=== PATIENT | male | born 1980 | race Caucasian/White ===

== ENCOUNTER 2019-10-08 16:41 | Observation (INO) | payer SELFPAY ==
[2019-10-08] MEDS ORDERED: Sodium Chloride 0.9% 10 ML Syringe FLUSH PRN (17:09)
[2019-10-08] MEDS ORDERED: Ondansetron 4 MG/2 ML SDV IVPUSH ONE (17:09)
[2019-10-08] MEDS ORDERED: Sodium Chloride 0.9% 1,000 ML IV ONE ×2 (17:09→22:59)
[2019-10-08] MEDS ORDERED: Sodium Chloride 0.9% 2.5 ML Syringe FLUSH PRN (17:09)
[2019-10-08] MEDS ORDERED: Morphine 4 MG/ML Syringe ONE (17:36)
[2019-10-08] MEDS ORDERED: Ketorolac 15 MG/ML SDV ONE (17:36)
[2019-10-08] MEDS ORDERED: Morphine 4 MG/ML Syringe IVPUSH ONE (17:38)
[2019-10-08] MEDS ORDERED: Ketorolac 15 MG/ML SDV IVPUSH ONE (17:39)
[2019-10-08 18:05] LABS: CARBON DIOXIDE,CO2 29.8 mmol/L (21.0-32.0); POTASSIUM,K 4.2 mmol/L (3.5-5.1)
--- NOTE | 2019-10-08 18:29 | EDM.PDOC ---
ED HPI GENERAL MEDICAL PROBLEM - General Chief Complaint: Abdominal Pain Stated Complaint: LWR ABDOMINAL PAIN Time Seen by Provider: 10/08/19 17:19 - History of Present Illness INITIAL COMMENTS - FREE TEXT/NARRATIVE: History of present illness: 39-year-old male presenting with right lower quadrant abdominal pain that intermittently radiates to the right flank. Nauseous and vomiting. Patient did report he is feeling chills and sweats though no measured fevers. No diarrhea. No recent sick contacts. No prior similar symptoms. Does not noticed any blood or change in urine color or smell. Review of systems: As per history of present illness and below otherwise all systems reviewed and negative. Past medical history: As per history of present illness and as reviewed below otherwise noncontributory. Surgical history: As per history of present illness and as reviewed below otherwise noncontributory. Social history: No reported history of drug or alcohol abuse. No tobacco. Family history: As per history of present illness and as reviewed below otherwise noncontributory. Physical exam: GEN: no acute distress, well appearing HEENT: Atraumatic, normocephalic, mucous membranes moist, Neck: supple, nontender, trachea midline. Lungs: No respiratory distress. Heart: RRR Abdomen: Soft, nondistended, right lower quadrant tenderness to palpation. Minimal right upper quadrant tenderness. Tena's negative. No epigastric or left-sided abdominal tenderness. Back: Mild CVA tenderness Extremities: Atraumatic. Neurovascularly intact. Neuro: Awake, alert, oriented. Neuro Exam nonfocal. Skin: warm, dry, no lesions Diagnostics: Labs and CT scan Therapeutics: Toradol, Zofran, Rocephin MDM: Appendicitis versus stone versus UTI. Less likely cholecystitis given minimal tenderness in right upper quadrant. Impression: [] Plan: [] Definitive disposition and diagnosis as appropriate pending reevaluation and review of above. Abdominal Pain Score (Numeric/FACES): 6 - Related Data Allergies Allergy/AdvReac Type Severity Reaction Status Date / Time Penicillins Allergy Cannot Verified 10/09/19 02:02 Remember Home Meds: Home Meds . [No Known Home Meds] 10/08/19 [History] Past Medical History - Past Health History Medical/Surgical History: Denies Medical/Surgical History - Infectious Disease History Infectious Disease History: Reports: None Social & Family History - Family History Family Medical History: Noncontributory - Tobacco Use Smoking Status *Q: Never Smoker - Caffeine Use Caffeine Use: Reports: None - Recreational Drug Use Recreational Drug Use: No ED ROS GENERAL - Review of Systems Review Of Systems: See Below (See HPI) ED EXAM, GI/ABD - Physical Exam Exam: See Below (See HPI) Course - Vital Signs Text/Narrative:: Lower quadrant abdominal pain, nausea and vomiting. No measured fevers at home but did feel chills and sweats. White blood cell count elevated here. UA appears bloody, CT scan shows 5 mm stone at the proximal ureter with decreased perfusion to the kidney and hydronephrosis. Lipase also elevated, however pain not located in this area, question lab error? Does not drink alcohol. Pain not located in the epigastrium. Will recheck lipase level, lab called for redraw. Will admit the patient. Case discussed with urologist, who recommended to monitor the patient and creatinine. Also discussed with hospitalist who agrees to admit the patient. Last Recorded V/S: Last Vital Signs Temp 98.0 F 10/09/19 03:32 Pulse 70 10/09/19 03:32 Resp 17 10/09/19 03:32 BP 122/71 10/09/19 03:32 Pulse Ox 95 10/09/19 03:32 - Orders/Labs/Meds Orders: Active Orders 24 hr Category Date Time Status Patient Status [ADT] Routine ADT 10/08/19 19:52 Active Sodium Chloride 0.9% [Saline Flush] Med 10/08/19 17:09 Active 10 ml FLUSH ASDIRECTED PRN Sodium Chloride 0.9% [Saline Flush] Med 10/08/19 17:09 Active 2.5 ml FLUSH ASDIRECTED PRN Saline Lock Insert [OM.PC] Stat Oth 10/08/19 17:09 Ordered Medication Orders Sodium Chloride (Normal Saline) 1,000 mls @ 200 mls/hr IV ASDIRECTED LUZ MARIA Last Admin: 10/09/19 07:41 Dose: 200 mls/hr Documented by: Infusion: 10/09/19 07:41 Dose: 200 mls/hr Documented by: Admin: 10/09/19 03:11 Dose: 200 mls/hr Documented by: Infusion: 07/19/20 02:08 Dose: 200 mls/hr Documented by: Admin: 10/08/19 21:08 Dose: 200 mls/hr Documented by: RAFAEL Morphine Sulfate (Morphine) 2 mg IVPUSH Q3H PRN PRN Reason: Pain Sodium Chloride (Saline Flush) 10 ml FLUSH ASDIRECTED PRN PRN Reason: Keep Vein Open Sodium Chloride (Saline Flush) 2.5 ml FLUSH ASDIRECTED PRN PRN Reason: Keep Vein Open Labs: Laboratory Tests 10/08/19 10/08/19 10/08/19 Range/Units 17:20 17:20 17:21 WBC 12.46 H (4.0-11.0) K/uL RBC 5.54 (4.50-5.90) M/uL Hgb 15.8 (13.0-17.0) g/dL Hct 48.3 (38.0-50.0) % MCV 87.2 (80.0-98.0) fL MCH 28.5 (27.0-32.0) pg MCHC 32.7 (31.0-37.0) g/dL RDW Std Deviation 41.7 (28.0-62.0) fl RDW Coeff of [place] 13 (11.0-15.0) % Plt Count 260 (150-400) K/uL MPV 11.50 (7.40-12.00) fL Neut % (Auto) 78.3 (48.0-80.0) % Lymph % (Auto) 15.4 L (16.0-40.0) % [place] % (Auto) 5.7 (0.0-15.0) % Eos % (Auto) 0.3 (0.0-7.0) % Baso % (Auto) 0.3 (0.0-1.5) % Neut # (Auto) 9.8 H (1.4-5.7) K/uL Lymph # (Auto) 1.9 (0.6-2.4) K/uL [place] # (Auto) 0.7 (0.0-0.8) K/uL Eos # (Auto) 0.0 (0.0-0.7) K/uL Baso # (Auto) 0.0 (0.0-0.1) K/uL Nucleated RBC % 0.0 /100WBC Nucleated RBCs # 0 K/uL Sodium 141 (136-148) mmol/L Potassium 4.2 (3.5-5.1) mmol/L Chloride 102 (98-107) mmol/L Carbon Dioxide 29.8 (21.0-32.0) mmol/L BUN 16 (7.0-18.0) mg/dL Creatinine 1.4 H (0.8-1.3) mg/dL Est Cr Clr Drug Dosing 76.21 mL/min Estimated GFR (MDRD) 55.8 ml/min Glucose 120 H (74-106) mg/dL Calcium 9.7 (8.5-10.1) mg/dL Total Bilirubin 0.4 (0.2-1.0) mg/dL AST 30 (15-37) IU/L ALT 47 (14-63) IU/L Alkaline Phosphatase 73 (46-116) U/L Total Protein 8.1 (6.4-8.2) g/dL Albumin 4.1 (3.4-5.0) g/dL Globulin 4.0 (2.6-4.0) g/dL Albumin/Globulin Ratio 1.0 (0.9-1.6) Lipase 4237 H (73-393) U/L Urine Color YELLOW Urine Appearance SLT CLOUDY Urine pH 6.5 (5.0-8.0) Ur Specific [place] 1.025 (1.001-1.035) Urine Protein TRACE H (NEGATIVE) mg/dL Urine Glucose (UA) NEGATIVE (NEGATIVE) mg/dL Urine Ketones NEGATIVE (NEGATIVE) mg/dL Urine Occult Blood LARGE H (NEGATIVE) Urine Nitrite NEGATIVE (NEGATIVE) Urine Bilirubin NEGATIVE (NEGATIVE) Urine Urobilinogen 0.2 (<2.0) EU/dL Ur Leukocyte Esterase NEGATIVE (NEGATIVE) Urine RBC 40-50 (0-2/HPF) Urine WBC 2-4 (0-5/HPF) Ur Epithelial Cells FEW (NONE-FEW) Urine Bacteria FEW (NEGATIVE) 10/08/19 Range/Units 20:02 WBC (4.0-11.0) K/uL RBC (4.50-5.90) M/uL Hgb (13.0-17.0) g/dL Hct (38.0-50.0) % MCV (80.0-98.0) fL MCH (27.0-32.0) pg MCHC (31.0-37.0) g/dL RDW Std Deviation (28.0-62.0) fl RDW Coeff of [place] (11.0-15.0) % Plt Count (150-400) K/uL MPV (7.40-12.00) fL Neut % (Auto) (48.0-80.0) % Lymph % (Auto) (16.0-40.0) % [place] % (Auto) (0.0-15.0) % Eos % (Auto) (0.0-7.0) % Baso % (Auto) (0.0-1.5) % Neut # (Auto) (1.4-5.7) K/uL Lymph # (Auto) (0.6-2.4) K/uL [place] # (Auto) (0.0-0.8) K/uL Eos # (Auto) (0.0-0.7) K/uL Baso # (Auto) (0.0-0.1) K/uL Nucleated RBC % /100WBC Nucleated RBCs # K/uL Sodium (136-148) mmol/L Potassium (3.5-5.1) mmol/L Chloride (98-107) mmol/L Carbon Dioxide (21.0-32.0) mmol/L BUN (7.0-18.0) mg/dL Creatinine (0.8-1.3) mg/dL Est Cr Clr Drug Dosing mL/min Estimated GFR (MDRD) ml/min Glucose (74-106) mg/dL Calcium (8.5-10.1) mg/dL Total Bilirubin (0.2-1.0) mg/dL AST (15-37) IU/L ALT (14-63) IU/L Alkaline Phosphatase (46-116) U/L Total Protein (6.4-8.2) g/dL Albumin (3.4-5.0) g/dL Globulin (2.6-4.0) g/dL Albumin/Globulin Ratio (0.9-1.6) Lipase 2116 H (73-393) U/L Urine Color Urine Appearance Urine pH (5.0-8.0) Ur Specific [place] (1.001-1.035) Urine Protein (NEGATIVE) mg/dL Urine Glucose (UA) (NEGATIVE) mg/dL Urine Ketones (NEGATIVE) mg/dL Urine Occult Blood (NEGATIVE) Urine Nitrite (NEGATIVE) Urine Bilirubin (NEGATIVE) Urine Urobilinogen (<2.0) EU/dL Ur Leukocyte Esterase (NEGATIVE) Urine RBC (0-2/HPF) Urine WBC (0-5/HPF) Ur Epithelial Cells (NONE-FEW) Urine Bacteria (NEGATIVE) Meds: Medications Generic Name Dose Route Start Last Admin Trade Name Caroline PRN Reason Stop Dose Admin Sodium Chloride 1,000 mls @ 200 mls/hr 10/08/19 20:45 10/09/19 07:41 Normal Saline IV 200 mls/hr ASDIRECTED LUZ MARIA Administration Morphine Sulfate 2 mg 10/08/19 20:40 Morphine IVPUSH Q3H PRN Pain Sodium Chloride 10 ml 10/08/19 17:09 Saline Flush FLUSH ASDIRECTED PRN Keep Vein Open Sodium Chloride 2.5 ml 10/08/19 17:09 Saline Flush FLUSH ASDIRECTED PRN Keep Vein Open Discontinued Medications Generic Name Dose Route Start Last Admin Trade Name Caroline PRN Reason Stop Dose Admin Sodium Chloride 1,000 mls @ 999 mls/hr 10/08/19 17:09 10/08/19 17:22 Normal Saline IV 10/08/19 18:09 999 mls/hr .Bolus ONE Administration Ceftriaxone Sodium 1 gm/ 50 mls @ 100 mls/hr 10/08/19 19:35 10/08/19 19:45 Sodium Chloride IV 10/08/19 20:04 100 mls/hr ONETIME ONE Administration Sodium Chloride 1,000 mls @ 999 mls/hr 10/08/19 22:59 10/08/19 23:32 Normal Saline IV 10/08/19 23:59 999 mls/hr .Bolus ONE Administration Iopamidol 100 ml 10/08/19 19:09 10/08/19 19:09 Isovue-370 (76%) IVPUSH 10/08/19 19:10 100 ml ONETIME ONE Administration Ketorolac Tromethamine Confirm 10/08/19 17:36 10/08/19 17:57 Toradol Administered 10/08/19 17:37 Not Given Dose 15 mg .ROUTE .STK-MED ONE Ketorolac Tromethamine 15 mg 10/08/19 17:39 10/08/19 17:42 Toradol IVPUSH 10/08/19 17:40 15 mg ONETIME ONE Administration Morphine Sulfate Confirm 10/08/19 17:36 10/08/19 17:57 Morphine Administered 10/08/19 17:37 Not Given Dose 4 mg .ROUTE .STK-MED ONE Morphine Sulfate 4 mg 10/08/19 17:38 10/08/19 17:40 Morphine IVPUSH 10/08/19 17:39 4 mg ONETIME ONE Administration Ondansetron HCl 4 mg 10/08/19 17:09 10/08/19 17:22 Zofran IVPUSH 10/08/19 17:10 4 mg ONETIME ONE Administration - Re-Assessments/Exams Free Text/Narrative Re-Assessment/Exam: 10/08/19 19:11 discussed with patient, he is feeling somewhat better. Discussed CT scan findings and concern for large proximal stone causing obstruction and need to discuss with urology, and for admission. 10/08/19 19:36 Discussed with urology, agrees with plan of care for the patient, requests hospitalist admit the patient based on elevated lipase as well and if patient tate s any worsening creatinine or obstructing stone issues, he will come in and place stent. 10/08/19 19:[address] Norman who accepts the case. Request to place the patient to observation. Departure - Departure Time of Disposition: 19:45 Disposition: Refer to Observation Clinical Impression: Urinary tract obstruction by kidney stone, Pancreatitis - Discharge Information Sepsis Event Note (ED) - Evaluation Sepsis Screening Result: No Definite Risk - My Orders Last 24 Hours: My Active Orders 10/08/19 17:09 Sodium Chloride 0.9% [Saline Flush] 10 ml FLUSH ASDIRECTED PRN Sodium Chloride 0.9% [Saline Flush] 2.5 ml FLUSH ASDIRECTED PRN Saline Lock Insert [OM.PC] Stat 10/08/19 19:52 Patient Status [ADT] Routine - Assessment/Plan Last 24 Hours: My Active Orders 10/08/19 17:09 Sodium Chloride 0.9% [Saline Flush] 10 ml FLUSH ASDIRECTED PRN Sodium Chloride 0.9% [Saline Flush] 2.5 ml FLUSH ASDIRECTED PRN Saline Lock Insert [OM.PC] Stat 10/08/19 19:52 Patient Status [ADT] Routine
--- NOTE | 2019-10-08 19:04 | CT ---
CT abdomen and pelvis Technique: Multiple axial sections were obtained from above the dome of the diaphragm inferiorly through the pubic symphysis. Intravenous contrast was utilized. No oral contrast has been given. Findings: Decreased perfusion within the right kidney is seen as compared to the left kidney. This finding is caused by an obstructing stone within the proximal right ureter measuring between 5.0 and 5.5 mm. This finding causes proximal hydronephrosis. Several nonobstructing stones are seen within the left kidney. Visualized lung bases show nothing acute. Liver shows a small low density lesionre within the right lobe measuring 1.1 cm in size which is compatible with a cyst. No additional abnormality is appreciated within the liver. Spleen appears within normal limits. Adrenal glands show no nodule. Pancreas shows no discrete abnormality. Aorta shows no aneurysm. No retroperitoneal adenopathy or mesenteric abnormalities are seen. No pelvic mass or adenopathy is identified. Appendix is seen which is normal in size. Bone window settings were reviewed which shows no acute osseous finding. Impression: 1. Decreased perfusion within the right kidney as compared to the left side which is caused by a ureteral stone within the proximal right ureter measuring between 5.0 and 5.5 mm. This stone causes proximal hydronephrosis. 2. Nonobstructing calculi within the left kidney. 3. No other acute finding is seen on CT study of the abdomen and pelvis. Diagnostic code #3 This report was dictated in MDT
[2019-10-08] MEDS ORDERED: Iopamidol 755 Mg/ML 100 ML Bottle IVPUSH ONE (19:09)
[2019-10-08] MEDS ORDERED: cefTRIAXone 1 GM in Sodium Chloride 0.9% 50 ML IV ONE (19:35)
[2019-10-08] MEDS ORDERED: Morphine 2 MG/ML SYRINGE IVPUSH PRN (20:40)
[2019-10-08] MEDS: Sodium Chloride 0.9% 1,000 ML IV SCH (21:08)
--- NOTE | 2019-10-08 23:01 | PCM.HP.2 ---
H&P History of Present Illness - General Date of Service: 10/08/19 Admit Problem/Dx: Admission Diagnosis/Problem Admission Diagnosis/Problem Kidney stone - History of Present Illness Initial Comments - Free Text/Narative: 39 yo male who presented with one day history of right lower quadrant pain that radiates to the flank. He denies any fever, chills, diarrhea, or dysuria. CT scan showed 5 mm right ureter stone. Patient was also noted to have an elevated lipase. Patient denies any alcohol use. Abdominal Pain Score (Numeric/FACES): 5 - Related Data Allergies/Adverse Reactions: Allergies Allergy/AdvReac Type Severity Reaction Status Date / Time Penicillins Allergy Cannot Verified 10/08/19 16:55 Remember Home Medications: Home Meds . [No Known Home Meds] 10/08/19 [History] Past Medical History - Past Health History Medical/Surgical History: Denies Medical/Surgical History - Infectious Disease History Infectious Disease History: Reports: None Social & Family History - Family History Family Medical History: Noncontributory - Tobacco Use Smoking Status *Q: Never Smoker - Caffeine Use Caffeine Use: Reports: None - Recreational Drug Use Recreational Drug Use: No H&P Review of Systems - Review of Systems: Review Of Systems: Comprehensive ROS is negative, except as noted in HPI. Exam - Exam Exam: See Below - Vital Signs Vital Signs: Last Vital Signs Temp 37.1 C 10/08/19 21:00 Pulse 77 10/08/19 21:00 Resp 17 10/08/19 21:00 BP 132/78 10/08/19 21:00 Pulse Ox 95 10/08/19 21:00 Weight: 100.924 kg - Exam General: Alert, Oriented HEENT: Mucosa Moist & [place] Neck: Supple Lungs: Clear to Auscultation, Normal Respiratory Effort Cardiovascular: Regular Rate, Regular Rhythm GI/Abdominal Exam: Normal Bowel Sounds, Soft, Non-Tender Extremities: Non-Tender, No Pedal Edema Skin: Warm, Dry, Intact Neurological: No: Focal Deficit - Patient Data Lab Results Last 24 hrs: Laboratory Results - last 24 hr 10/08/19 10/08/19 10/08/19 Range/Units 17:20 17:20 17:21 WBC 12.46 H (4.0-11.0) K/uL RBC 5.54 (4.50-5.90) M/uL Hgb 15.8 (13.0-17.0) g/dL Hct 48.3 (38.0-50.0) % MCV 87.2 (80.0-98.0) fL MCH 28.5 (27.0-32.0) pg MCHC 32.7 (31.0-37.0) g/dL RDW Std Deviation 41.7 (28.0-62.0) fl RDW Coeff of Eugenia 13 (11.0-15.0) % Plt Count 260 (150-400) K/uL MPV 11.50 (7.40-12.00) fL Neut % (Auto) 78.3 (48.0-80.0) % Lymph % (Auto) 15.4 L (16.0-40.0) % [place] % (Auto) 5.7 (0.0-15.0) % Eos % (Auto) 0.3 (0.0-7.0) % Baso % (Auto) 0.3 (0.0-1.5) % Neut # (Auto) 9.8 H (1.4-5.7) K/uL Lymph # (Auto) 1.9 (0.6-2.4) K/uL [place] # (Auto) 0.7 (0.0-0.8) K/uL Eos # (Auto) 0.0 (0.0-0.7) K/uL Baso # (Auto) 0.0 (0.0-0.1) K/uL Nucleated RBC % 0.0 /100WBC Nucleated RBCs # 0 K/uL Sodium 141 (136-148) mmol/L Potassium 4.2 (3.5-5.1) mmol/L Chloride 102 (98-107) mmol/L Carbon Dioxide 29.8 (21.0-32.0) mmol/L BUN 16 (7.0-18.0) mg/dL Creatinine 1.4 H (0.8-1.3) mg/dL Est Cr Clr Drug Dosing 76.21 mL/min Estimated GFR (MDRD) 55.8 ml/min Glucose 120 H (74-106) mg/dL Calcium 9.7 (8.5-10.1) mg/dL Total Bilirubin 0.4 (0.2-1.0) mg/dL AST 30 (15-37) IU/L ALT 47 (14-63) IU/L Alkaline Phosphatase 73 (46-116) U/L Total Protein 8.1 (6.4-8.2) g/dL Albumin 4.1 (3.4-5.0) g/dL Globulin 4.0 (2.6-4.0) g/dL Albumin/Globulin Ratio 1.0 (0.9-1.6) Lipase 4237 H (73-393) U/L Urine Color YELLOW Urine Appearance SLT CLOUDY Urine pH 6.5 (5.0-8.0) Ur Specific [place] 1.025 (1.001-1.035) Urine Protein TRACE H (NEGATIVE) mg/dL Urine Glucose (UA) NEGATIVE (NEGATIVE) mg/dL Urine Ketones NEGATIVE (NEGATIVE) mg/dL Urine Occult Blood LARGE H (NEGATIVE) Urine Nitrite NEGATIVE (NEGATIVE) Urine Bilirubin NEGATIVE (NEGATIVE) Urine Urobilinogen 0.2 (<2.0) EU/dL Ur Leukocyte Esterase NEGATIVE (NEGATIVE) Urine RBC 40-50 (0-2/HPF) Urine WBC 2-4 (0-5/HPF) Ur Epithelial Cells FEW (NONE-FEW) Urine Bacteria FEW (NEGATIVE) COVID-19 (SHOSHANA) (NEGATIVE) 10/08/19 10/08/19 Range/Units 20:02 20:05 WBC (4.0-11.0) K/uL RBC (4.50-5.90) M/uL Hgb (13.0-17.0) g/dL Hct (38.0-50.0) % MCV (80.0-98.0) fL MCH (27.0-32.0) pg MCHC (31.0-37.0) g/dL RDW Std Deviation (28.0-62.0) fl RDW Coeff of [place] (11.0-15.0) % Plt Count (150-400) K/uL MPV (7.40-12.00) fL Neut % (Auto) (48.0-80.0) % Lymph % (Auto) (16.0-40.0) % [place] % (Auto) (0.0-15.0) % Eos % (Auto) (0.0-7.0) % Baso % (Auto) (0.0-1.5) % Neut # (Auto) (1.4-5.7) K/uL Lymph # (Auto) (0.6-2.4) K/uL [place] # (Auto) (0.0-0.8) K/uL Eos # (Auto) (0.0-0.7) K/uL Baso # (Auto) (0.0-0.1) K/uL Nucleated RBC % /100WBC Nucleated RBCs # K/uL Sodium (136-148) mmol/L Potassium (3.5-5.1) mmol/L Chloride (98-107) mmol/L Carbon Dioxide (21.0-32.0) mmol/L BUN (7.0-18.0) mg/dL Creatinine (0.8-1.3) mg/dL Est Cr Clr Drug Dosing mL/min Estimated GFR (MDRD) ml/min Glucose (74-106) mg/dL Calcium (8.5-10.1) mg/dL Total Bilirubin (0.2-1.0) mg/dL AST (15-37) IU/L ALT (14-63) IU/L Alkaline Phosphatase (46-116) U/L Total Protein (6.4-8.2) g/dL Albumin (3.4-5.0) g/dL Globulin (2.6-4.0) g/dL Albumin/Globulin Ratio (0.9-1.6) Lipase 2116 H (73-393) U/L Urine Color Urine Appearance Urine pH (5.0-8.0) Ur Specific [place] (1.001-1.035) Urine Protein (NEGATIVE) mg/dL Urine Glucose (UA) (NEGATIVE) mg/dL Urine Ketones (NEGATIVE) mg/dL Urine Occult Blood (NEGATIVE) Urine Nitrite (NEGATIVE) Urine Bilirubin (NEGATIVE) Urine Urobilinogen (<2.0) EU/dL Ur Leukocyte Esterase (NEGATIVE) Urine RBC (0-2/HPF) Urine WBC (0-5/HPF) Ur Epithelial Cells (NONE-FEW) Urine Bacteria (NEGATIVE) COVID-19 (SHOSHANA) NEGATIVE (NEGATIVE) Result Diagrams: 10/08/19 17:20 10/08/19 17:20 Sepsis Event Note - Evaluation Sepsis Screening Result: No Definite Risk - Focused Exam Vital Signs: Vital Signs Temp Pulse Resp BP Pulse Ox 10/08/19 21:00 37.1 C 77 17 132/78 95 10/08/19 19:51 82 17 120/75 94 L 10/08/19 18:53 64 17 139/82 98 10/08/19 16:56 36.7 C 60 18 149/91 H 98 Date Exam was Performed: 10/08/19 Time Exam was Performed: 23:53 Problem List Initiated/Reviewed/Updated: Yes Orders Last 24hrs: Active Orders 24 hr Category Date Time Status Patient Status [ADT] Routine ADT 10/08/19 19:52 Active Nothing per Oral Now Diet [DIET] Diet 10/09/19 Breakfast Active Morphine Med 10/08/19 20:40 Active 2 mg IVPUSH Q3H PRN Sodium Chloride 0.9% [Normal Saline] 1,000 ml Med 10/08/19 22:59 Ordered IV .Bolus Sodium Chloride 0.9% [Normal Saline] 1,000 ml Med 10/08/19 20:45 Active IV ASDIRECTED Sodium Chloride 0.9% [Saline Flush] Med 10/08/19 17:09 Active 10 ml FLUSH ASDIRECTED PRN Sodium Chloride 0.9% [Saline Flush] Med 10/08/19 17:09 Active 2.5 ml FLUSH ASDIRECTED PRN Saline Lock Insert [OM.PC] Stat Oth 10/08/19 17:09 Ordered Medication Orders Sodium Chloride (Normal Saline) 1,000 mls @ 200 mls/hr IV ASDIRECTED LUZ MARIA Last Admin: 10/08/19 21:08 Dose: 200 mls/hr Documented by: RAFAEL Sodium Chloride (Normal Saline) 1,000 mls @ 999 mls/hr IV .Bolus ONE Stop: 10/08/19 23:59 Morphine Sulfate (Morphine) 2 mg IVPUSH Q3H PRN PRN Reason: Pain Sodium Chloride (Saline Flush) 10 ml FLUSH ASDIRECTED PRN PRN Reason: Keep Vein Open Sodium Chloride (Saline Flush) 2.5 ml FLUSH ASDIRECTED PRN PRN Reason: Keep Vein Open Assessment/Plan Comment:: 39 yo male admitted for right renal stone and pancreatitis. We will hydrate with IV fluids, keep NPO. Morphine prn pain.
[2019-10-09] MEDS: Sodium Chloride 0.9% 1,000 ML IV SCH ×2 (03:11→07:41)
[2019-10-09 06:06] LABS: BLOOD UREA NITROGEN,BUN 16 mg/dL (7.0-18.0); CARBON DIOXIDE,CO2 27.9 mmol/L (21.0-32.0); CHLORIDE,CL 109 mmol/L (98-107); GLUCOSE RANDOM 107 mg/dL (74-106); POTASSIUM,K 4.3 mmol/L (3.5-5.1); SODIUM,NA 144 mmol/L (136-148)
--- NOTE | 2019-10-09 08:49 | PCM.DCSUM1 ---
Discharge Summary - Discharge Data Discharge Date: 10/09/19 Discharge Disposition: Home, Self-Care 01 Condition: Fair - Referral to Home Health Primary Care Physician: JUAQUIN Stack - Patient Summary/Data Hospital Course: 39 yo male who presented with one day history of right lower quadrant pain that radiates to the flank. CT scan showed 5 mm right ureter stone. Patient was also noted to have an elevated lipase of 4200. Patient denied any alcohol use. His abdominal pain resolved after one dose of morphine and did not return. He was treated with IV fluids and monitored overnight. Today the patient is requesting discharge home. He is to follow up with Dr. Elkins tomorrow in clinic. Dr. Elkins was consulted on admission by ED provider. - Patient Instructions Diet: Usual Diet as Tolerated - Discharge Plan Home Medications: Home Meds . [No Known Home Meds] 10/08/19 [History] Forms: ED Department Discharge Referrals: Ольга Briggs PA [Primary Care Provider] - - Discharge Summary/Plan Comment DC Time >30 min.: No - Patient Data Vitals - Most Recent: Last Vital Signs Temp 36.7 C 10/09/19 03:32 Pulse 70 10/09/19 03:32 Resp 17 10/09/19 03:32 BP 122/71 10/09/19 03:32 Pulse Ox 95 10/09/19 03:32 Weight - Most Recent: 100.924 kg I&O - Last 24 hours: Intake & Output 10/08/19 10/09/19 10/09/19 22:59 06:59 14:59 Intake Total 0 Output Total 1200 Balance -1200 Lab Results - Last 24 hrs: Laboratory Results - last 24 hr 10/08/19 10/08/19 10/08/19 Range/Units 17:20 17:20 17:21 WBC 12.46 H (4.0-11.0) K/uL RBC 5.54 (4.50-5.90) M/uL Hgb 15.8 (13.0-17.0) g/dL Hct 48.3 (38.0-50.0) % MCV 87.2 (80.0-98.0) fL MCH 28.5 (27.0-32.0) pg MCHC 32.7 (31.0-37.0) g/dL RDW Std Deviation 41.7 (28.0-62.0) fl RDW Coeff of Eugenia 13 (11.0-15.0) % Plt Count 260 (150-400) K/uL MPV 11.50 (7.40-12.00) fL Neut % (Auto) 78.3 (48.0-80.0) % Lymph % (Auto) 15.4 L (16.0-40.0) % Robertson % (Auto) 5.7 (0.0-15.0) % Eos % (Auto) 0.3 (0.0-7.0) % Baso % (Auto) 0.3 (0.0-1.5) % Neut # (Auto) 9.8 H (1.4-5.7) K/uL Lymph # (Auto) 1.9 (0.6-2.4) K/uL Robertson # (Auto) 0.7 (0.0-0.8) K/uL Eos # (Auto) 0.0 (0.0-0.7) K/uL Baso # (Auto) 0.0 (0.0-0.1) K/uL Nucleated RBC % 0.0 /100WBC Nucleated RBCs # 0 K/uL Sodium 141 (136-148) mmol/L Potassium 4.2 (3.5-5.1) mmol/L Chloride 102 (98-107) mmol/L Carbon Dioxide 29.8 (21.0-32.0) mmol/L BUN 16 (7.0-18.0) mg/dL Creatinine 1.4 H (0.8-1.3) mg/dL Est Cr Clr Drug Dosing 76.21 mL/min Estimated GFR (MDRD) 55.8 ml/min Glucose 120 H (74-106) mg/dL Calcium 9.7 (8.5-10.1) mg/dL Total Bilirubin 0.4 (0.2-1.0) mg/dL AST 30 (15-37) IU/L ALT 47 (14-63) IU/L Alkaline Phosphatase 73 (46-116) U/L Total Protein 8.1 (6.4-8.2) g/dL Albumin 4.1 (3.4-5.0) g/dL Globulin 4.0 (2.6-4.0) g/dL Albumin/Globulin Ratio 1.0 (0.9-1.6) Triglycerides (0-200) mg/dL Cholesterol (50-200) mg/dL LDL Cholesterol, Calc (60-180) mg/dL VLDL Cholesterol (5-55) mg/dL HDL Cholesterol (40-60) mg/dL Cholesterol/HDL Ratio (3.3-6.0) Lipase 4237 H (73-393) U/L Urine Color YELLOW Urine Appearance SLT CLOUDY Urine pH 6.5 (5.0-8.0) Ur Specific Temple 1.025 (1.001-1.035) Urine Protein TRACE H (NEGATIVE) mg/dL Urine Glucose (UA) NEGATIVE (NEGATIVE) mg/dL Urine Ketones NEGATIVE (NEGATIVE) mg/dL Urine Occult Blood LARGE H (NEGATIVE) Urine Nitrite NEGATIVE (NEGATIVE) Urine Bilirubin NEGATIVE (NEGATIVE) Urine Urobilinogen 0.2 (<2.0) EU/dL Ur Leukocyte Esterase NEGATIVE (NEGATIVE) Urine RBC 40-50 (0-2/HPF) Urine WBC 2-4 (0-5/HPF) Ur Epithelial Cells FEW (NONE-FEW) Urine Bacteria FEW (NEGATIVE) COVID-19 (SHOSHANA) (NEGATIVE) 10/08/19 10/08/19 10/09/19 Range/Units 20:02 20:05 05:30 WBC 10.95 (4.0-11.0) K/uL RBC 4.74 (4.50-5.90) M/uL Hgb 13.5 (13.0-17.0) g/dL Hct 42.0 (38.0-50.0) % MCV 88.6 (80.0-98.0) fL MCH 28.5 (27.0-32.0) pg MCHC 32.1 (31.0-37.0) g/dL RDW Std Deviation 43.6 (28.0-62.0) fl RDW Coeff of Eugenia 13 (11.0-15.0) % Plt Count 220 (150-400) K/uL MPV 11.30 (7.40-12.00) fL Neut % (Auto) 65.2 (48.0-80.0) % Lymph % (Auto) 24.8 (16.0-40.0) % Robertson % (Auto) 9.3 (0.0-15.0) % Eos % (Auto) 0.4 (0.0-7.0) % Baso % (Auto) 0.3 (0.0-1.5) % Neut # (Auto) 7.1 H (1.4-5.7) K/uL Lymph # (Auto) 2.7 H (0.6-2.4) K/uL Robertson # (Auto) 1.0 H (0.0-0.8) K/uL Eos # (Auto) 0.0 (0.0-0.7) K/uL Baso # (Auto) 0.0 (0.0-0.1) K/uL Nucleated RBC % 0.0 /100WBC Nucleated RBCs # 0 K/uL Sodium (136-148) mmol/L Potassium (3.5-5.1) mmol/L Chloride (98-107) mmol/L Carbon Dioxide (21.0-32.0) mmol/L BUN (7.0-18.0) mg/dL Creatinine (0.8-1.3) mg/dL Est Cr Clr Drug Dosing mL/min Estimated GFR (MDRD) ml/min Glucose (74-106) mg/dL Calcium (8.5-10.1) mg/dL Total Bilirubin (0.2-1.0) mg/dL AST (15-37) IU/L ALT (14-63) IU/L Alkaline Phosphatase (46-116) U/L Total Protein (6.4-8.2) g/dL Albumin (3.4-5.0) g/dL Globulin (2.6-4.0) g/dL Albumin/Globulin Ratio (0.9-1.6) Triglycerides (0-200) mg/dL Cholesterol (50-200) mg/dL LDL Cholesterol, Calc (60-180) mg/dL VLDL Cholesterol (5-55) mg/dL HDL Cholesterol (40-60) mg/dL Cholesterol/HDL Ratio (3.3-6.0) Lipase 2116 H (73-393) U/L Urine Color Urine Appearance Urine pH (5.0-8.0) Ur Specific Temple (1.001-1.035) Urine Protein (NEGATIVE) mg/dL Urine Glucose (UA) (NEGATIVE) mg/dL Urine Ketones (NEGATIVE) mg/dL Urine Occult Blood (NEGATIVE) Urine Nitrite (NEGATIVE) Urine Bilirubin (NEGATIVE) Urine Urobilinogen (<2.0) EU/dL Ur Leukocyte Esterase (NEGATIVE) Urine RBC (0-2/HPF) Urine WBC (0-5/HPF) Ur Epithelial Cells (NONE-FEW) Urine Bacteria (NEGATIVE) COVID-19 (SHOSHANA) NEGATIVE (NEGATIVE) 10/09/19 Range/Units 05:30 WBC (4.0-11.0) K/uL RBC (4.50-5.90) M/uL Hgb (13.0-17.0) g/dL Hct (38.0-50.0) % MCV (80.0-98.0) fL MCH (27.0-32.0) pg MCHC (31.0-37.0) g/dL RDW Std Deviation (28.0-62.0) fl RDW Coeff of Eugenia (11.0-15.0) % Plt Count (150-400) K/uL MPV (7.40-12.00) fL Neut % (Auto) (48.0-80.0) % Lymph % (Auto) (16.0-40.0) % Robertson % (Auto) (0.0-15.0) % Eos % (Auto) (0.0-7.0) % Baso % (Auto) (0.0-1.5) % Neut # (Auto) (1.4-5.7) K/uL Lymph # (Auto) (0.6-2.4) K/uL Robertson # (Auto) (0.0-0.8) K/uL Eos # (Auto) (0.0-0.7) K/uL Baso # (Auto) (0.0-0.1) K/uL Nucleated RBC % /100WBC Nucleated RBCs # K/uL Sodium 144 (136-148) mmol/L Potassium 4.3 (3.5-5.1) mmol/L Chloride 109 H (98-107) mmol/L Carbon Dioxide 27.9 (21.0-32.0) mmol/L BUN 16 (7.0-18.0) mg/dL Creatinine 1.3 (0.8-1.3) mg/dL Est Cr Clr Drug Dosing 82.08 mL/min Estimated GFR (MDRD) > 60.0 ml/min Glucose 107 H (74-106) mg/dL Calcium 8.0 L (8.5-10.1) mg/dL Total Bilirubin 0.4 (0.2-1.0) mg/dL AST 20 (15-37) IU/L ALT 33 (14-63) IU/L Alkaline Phosphatase 60 (46-116) U/L Total Protein 6.4 (6.4-8.2) g/dL Albumin 3.1 L (3.4-5.0) g/dL Globulin 3.3 (2.6-4.0) g/dL Albumin/Globulin Ratio 0.9 (0.9-1.6) Triglycerides 149 (0-200) mg/dL Cholesterol 122 (50-200) mg/dL LDL Cholesterol, Calc 66 (60-180) mg/dL VLDL Cholesterol 29 (5-55) mg/dL HDL Cholesterol 26 L (40-60) mg/dL Cholesterol/HDL Ratio 4.7 (3.3-6.0) Lipase (73-393) U/L Urine Color Urine Appearance Urine pH (5.0-8.0) Ur Specific Temple (1.001-1.035) Urine Protein (NEGATIVE) mg/dL Urine Glucose (UA) (NEGATIVE) mg/dL Urine Ketones (NEGATIVE) mg/dL Urine Occult Blood (NEGATIVE) Urine Nitrite (NEGATIVE) Urine Bilirubin (NEGATIVE) Urine Urobilinogen (<2.0) EU/dL Ur Leukocyte Esterase (NEGATIVE) Urine RBC (0-2/HPF) Urine WBC (0-5/HPF) Ur Epithelial Cells (NONE-FEW) Urine Bacteria (NEGATIVE) COVID-19 (SHOSHANA) (NEGATIVE) Med Orders - Current: Current Medications Sodium Chloride (Normal Saline) 1,000 mls @ 200 mls/hr IV ASDIRECTED LUZ MARIA Last Admin: 10/09/19 07:41 Dose: 200 mls/hr Documented by: Morphine Sulfate (Morphine) 2 mg IVPUSH Q3H PRN PRN Reason: Pain Sodium Chloride (Saline Flush) 10 ml FLUSH ASDIRECTED PRN PRN Reason: Keep Vein Open Sodium Chloride (Saline Flush) 2.5 ml FLUSH ASDIRECTED PRN PRN Reason: Keep Vein Open Discontinued Medications Sodium Chloride (Normal Saline) 1,000 mls @ 999 mls/hr IV .Bolus ONE Stop: 10/08/19 18:09 Last Admin: 10/08/19 17:22 Dose: 999 mls/hr Documented by: Ceftriaxone Sodium 1 gm/ (Sodium Chloride) 50 mls @ 100 mls/hr IV ONETIME ONE Stop: 10/08/19 20:04 Last Admin: 10/08/19 19:45 Dose: 100 mls/hr Documented by: Sodium Chloride (Normal Saline) 1,000 mls @ 999 mls/hr IV .Bolus ONE Stop: 10/08/19 23:59 Last Admin: 10/08/19 23:32 Dose: 999 mls/hr Documented by: Iopamidol (Isovue-370 (76%)) 100 ml IVPUSH ONETIME ONE Stop: 10/08/19 19:10 Last Admin: 10/08/19 19:09 Dose: 100 ml Documented by: Ketorolac Tromethamine (Toradol) Confirm Administered Dose 15 mg .ROUTE .STK-MED ONE Stop: 10/08/19 17:37 Last Admin: 10/08/19 17:57 Dose: Not Given Documented by: Ketorolac Tromethamine (Toradol) 15 mg IVPUSH ONETIME ONE Stop: 10/08/19 17:40 Last Admin: 10/08/19 17:42 Dose: 15 mg Documented by: Morphine Sulfate (Morphine) Confirm Administered Dose 4 mg .ROUTE .STK-MED ONE Stop: 10/08/19 17:37 Last Admin: 10/08/19 17:57 Dose: Not Given Documented by: Morphine Sulfate (Morphine) 4 mg IVPUSH ONETIME ONE Stop: 10/08/19 17:39 Last Admin: 10/08/19 17:40 Dose: 4 mg Documented by: Ondansetron HCl (Zofran) 4 mg IVPUSH ONETIME ONE Stop: 10/08/19 17:10 Last Admin: 10/08/19 17:22 Dose: 4 mg Documented by:
== END 2019-10-09 11:15 | disposition home or self-care (01) ==
LOC: MW.ED 16:41 → MW.MS 20:05 → INTOOBSV 20:05
PROVIDERS: ADMIT Internal Medicine; ATTEND Internal Medicine
DX: N13.2 Hydronephrosis with renal and ureteral calculous obstruction (principal); K85.90 Acute pancreatitis without necrosis or infection, unspecified; Z20.828 Contact with and (suspected) exposure to other viral communicable diseases; Z88.0 Allergy status to penicillin
CPT/HCPCS: 36415; 74177; 74177-26; 80053; 80061; 81001; 83690; 85025; 96361; 96365; 96375; 99285-25; G0378; J0696; J1885; J2270; J2405; J7030; J7050; Q9967; U0002

== ENCOUNTER 2019-10-13 06:41 | Day surgery (SDC) | payer SELFPAY ==
[~2019-10-13 06:41] MED LIST: Ciprofloxacin in D5W 200 ML ONE; Ciprofloxacin in D5W 400 MG in Premix Bag 1 BAG IV ONE; Lactated Ringers 1,000 ML IV SCH; Sodium Chloride 0.9% 10 ML SDV IV PRN; Sodium Chloride 0.9% 10 ML Syringe FLUSH PRN; Sodium Chloride 0.9% 2.5 ML Syringe FLUSH PRN
--- NOTE | 2019-10-13 07:18 | PCM.PREANE ---
Preanesthetic Assessment - Anesthesia/Transfusion/Family Hx Anesthesia History: Prior Anesthesia Without Reaction Family History of Anesthesia Reaction: No Transfusion History: No Prior Transfusion(s) Intubation History: Unknown - Review of Systems General: No Symptoms Pulmonary: No Symptoms Cardiovascular: No Symptoms Gastrointestinal: No Symptoms Neurological: No Symptoms Other: Reports: None - Physical Assessment Vital Signs: Last Vital Signs Temp 36.6 C 10/13/19 06:55 Pulse 76 10/13/19 06:55 Resp 16 10/13/19 06:55 BP 149/97 H 10/13/19 06:55 Pulse Ox 97 10/13/19 06:55 Height: 6 ft Weight: 99.79 kg ASA Class: 2 Mental Status: Alert & Oriented x3 Airway Class: Mallampati = 1 Dentition: Reports: Normal Dentition (lower retainer) Thyro-Mental Finger Breadths: 3 Mouth Opening Finger Breadths: 3 ROM/Head Extension: Full Lungs: Clear to Auscultation, Normal Respiratory Effort Cardiovascular: Regular Rate, Regular Rhythm - Allergies Allergies/Adverse Reactions: Allergies Allergy/AdvReac Type Severity Reaction Status Date / Time Penicillins Allergy Cannot Verified 10/12/19 14:07 Remember - Blood Blood Available: No - Anesthesia Plan Pre-Op Medication Ordered: None - Acknowledgements Anesthesia Type Planned: General Anesthesia Pt an Appropriate Candidate for the Planned Anesthesia: Yes Alternatives and Risks of Anesthesia Discussed w Pt/Guardian: Yes Pt/Guardian Understands and Agrees with Anesthesia Plan: Yes PreAnesthesia Questionnaire - Past Health History Medical/Surgical History: Denies Medical/Surgical History HEENT History: Reports: Other (See Below) Other HEENT History: wears glasses, has permanent lower dental retainer Cardiovascular History: Reports: None Respiratory History: Reports: None Gastrointestinal History: Reports: None Genitourinary History: Reports: Other (See Below) Other Genitourinary History: presently has kidney stone Musculoskeletal History: Reports: None Neurological History: Reports: None Psychiatric History: Reports: None Endocrine/Metabolic History: Reports: None Hematologic History: Reports: None Immunologic History: Reports: None Oncologic (Cancer) History: Reports: None Dermatologic History: Reports: None - Infectious Disease History Infectious Disease History: Reports: None - Past Surgical History Head Surgeries/Procedures: Reports: None HEENT Surgical History: Reports: None Cardiovascular Surgical History: Reports: None Respiratory Surgical History: Reports: None GI Surgical History: Reports: None Male Surgical History: Reports: Vasectomy (under local anesthesia) Endocrine Surgical History: Reports: None Neurological Surgical History: Reports: None Musculoskeletal Surgical History: Reports: None Oncologic Surgical History: Reports: None Dermatological Surgical History: Reports: None - SUBSTANCE USE Smoking Status *Q: Never Smoker Recreational Drug Use History: No - HOME MEDS Home Medications: Home Meds . [No Known Home Meds] 10/08/19 [History] - CURRENT (IN HOUSE) MEDS Current Meds: Current Medications Lactated Ringer's (Ringers, Lactated) 1,000 mls @ 100 mls/hr IV ASDIRECTED LUZ MARIA Sodium Chloride (Saline Flush) 2.5 ml FLUSH ASDIRECTED PRN PRN Reason: Keep Vein Open Sodium Chloride (Normal Saline) 10 ml IV ASDIRECTED PRN PRN Reason: IV Use Sodium Chloride (Saline Flush) 10 ml FLUSH ASDIRECTED PRN PRN Reason: Keep Vein Open Discontinued Medications Ciprofloxacin/Dextrose 400 mg/ (Premix) 200 mls @ 200 mls/hr IV ONCALL ONE Stop: 10/13/19 01:00 Ciprofloxacin/Dextrose (Cipro In D5w 400 Mg/200 Ml) Confirm Administered Dose 200 mls @ as directed .ROUTE .STK-MED ONE Stop: 10/13/19 06:36
[2019-10-13] MEDS ORDERED: fentaNYL 100 MCG/2 ML SDV ONE (07:45)
[2019-10-13] MEDS ORDERED: Ketorolac 30 MG/ML SDV ONE (07:45)
[2019-10-13] MEDS ORDERED: Rocuronium Bromide 50 MG/5 ML Syringe ONE (07:45)
[2019-10-13] MEDS ORDERED: Propofol 200 MG/20 ML SDV ONE (07:45)
[2019-10-13] MEDS ORDERED: Ondansetron 4 MG/2 ML SDV ONE (07:45)
[2019-10-13] MEDS ORDERED: Midazolam 1 MG/ML 2 ML SDV ONE (07:45)
[2019-10-13] MEDS ORDERED: Sugammadex Sodium 200 MG/2 ML VIAL ONE (08:38)
[2019-10-13] MEDS ORDERED: HYDROmorphone 2 MG/ML Syringe ONE (09:00)
--- NOTE | 2019-10-13 09:46 | PCM.POSTAN ---
POST ANESTHESIA ASSESSMENT - MENTAL STATUS Mental Status: Alert, Oriented - VITAL SIGNS Vital Signs: Last Vital Signs Temp 36.2 C 10/13/19 09:25 Pulse 53 L 10/13/19 09:40 Resp 10 L 10/13/19 09:40 BP 122/75 10/13/19 09:40 Pulse Ox 96 10/13/19 09:40 - RESPIRATORY Respiratory Status: Respiratory Rate WNL, Airway Patent, O2 Saturation Stable - CARDIOVASCULAR CV Status: Pulse Rate WNL, Blood Pressure Stable - GASTROINTESTINAL GI Status: No Symptoms - PAIN Pain Score: 0 - POST OP HYDRATION Hydration Status: Adequate & Stable - OBSERVATIONS Free Text/Narrative:: No anesthesia problems
--- NOTE | 2019-10-13 12:25 | PCM48HPAN ---
Post Anesthesia Note - EVALUATION WITHIN 48HRS OF ANESTHETIC Vital Signs in Normal Range: Yes Patient Participated in Evaluation: Yes Respiratory Function Stable: Yes Airway Patent: Yes Cardiovascular Function Stable: Yes Hydration Status Stable: Yes Pain Control Satisfactory: Yes Nausea and Vomiting Control Satisfactory: Yes Mental Status Recovered: Yes Vital Signs: Last Vital Signs Temp 35.9 C L 10/13/19 09:45 Pulse 51 L 10/13/19 09:45 Resp 16 10/13/19 09:45 BP 135/73 10/13/19 09:45 Pulse Ox 97 10/13/19 09:45 - COMMENTS/OBSERVATIONS Free Text/Narrative:: No anesthesia problems
--- NOTE | 2019-10-13 15:49 | OR ---
SURGEON: Brenna Elkins M.D. DATE OF PROCEDURE: 10/13/2019 PREOPERATIVE DIAGNOSES: 1. Right upper ureteral stone, 7 mm. 2. Left renal pelvis stone, 9 mm. POSTOPERATIVE DIAGNOSES: 1. Right upper ureteral stone, 7 mm. 2. Left renal pelvis stone, 9 mm. OPERATION: Shock wave lithotripsy of right upper ureteral stone with incomplete breaking of the stone plus cystoscopy and double-J stent placement on the right. DESCRIPTION OF PROCEDURE: The patient was given general anesthesia, placed on the lithotripsy table. Position of the patient was adjusted, so the stone could be treated and eventually received a total of 2400 shocks. At the end of the treatment, there were still 2 or 3 good-sized fragments of the stone that did not break. With that done, the patient was then placed in dorsal lithotomy position. Cystoscopy was done and that was normal with the exception of seeing bloody urine coming out of the right ureter. A guidewire was advanced into the ureter, but could not go beyond the stone, so a Glidewire was then used and passed by the stone without difficulty over which a 6-Hungarian 26 centimeter double-J stent was placed. Position was confirmed on fluoroscopy. The bladder was emptied, and the patient was moved to recovery room in good condition. PLAN: I will see him again in 1 week and schedule the next step which would have to be right ureteroscopy with laser lithotripsy. JEFFREY / SURAJ /[id number]
== END 2019-10-13 10:47 | disposition home or self-care (01) ==
LOC: MW.SDS 06:41
PROVIDERS: ATTEND Urology
DX: N20.2 Calculus of kidney with calculus of ureter (principal); Z88.0 Allergy status to penicillin; Z91.030 Bee allergy status
CPT/HCPCS: 50590; 52332; C1769; C2617; J0131; J0744; J1170; J1885; J2250; J2405; J2704; J3010; J3490; J7120

== ENCOUNTER 2019-11-01 06:32 | Day surgery (SDC) | payer OTHER ==
[~2019-11-01 06:32] MED LIST changes: -Ciprofloxacin in D5W 200 ML ONE
[2019-11-01] MEDS ORDERED: fentaNYL 100 MCG/2 ML SDV ONE (07:10)
[2019-11-01] MEDS ORDERED: Midazolam 1 MG/ML 2 ML SDV ONE (07:10)
[2019-11-01] MEDS ORDERED: Ondansetron 4 MG/2 ML SDV ONE (07:10)
[2019-11-01] MEDS ORDERED: Propofol 200 MG/20 ML SDV ONE ×2 (07:10→08:32)
[2019-11-01] MEDS ORDERED: Ketorolac 30 MG/ML SDV ONE (07:11)
--- NOTE | 2019-11-01 07:11 | PCM.PREANE ---
Preanesthetic Assessment - Anesthesia/Transfusion/Family Hx Anesthesia History: Prior Anesthesia Without Reaction Family History of Anesthesia Reaction: No Transfusion History: No Prior Transfusion(s) Intubation History: Unknown - Review of Systems General: No Symptoms Pulmonary: No Symptoms Cardiovascular: No Symptoms Gastrointestinal: No Symptoms Neurological: No Symptoms Other: Reports: None - Physical Assessment Height: 6 ft Weight: 99.79 kg ASA Class: 2 Mental Status: Alert & Oriented x3 Airway Class: Mallampati = 1 Dentition: Reports: Normal Dentition (permanent retainer - lower) Thyro-Mental Finger Breadths: 3 Mouth Opening Finger Breadths: 3 ROM/Head Extension: Full Lungs: Clear to Auscultation, Normal Respiratory Effort Cardiovascular: Regular Rate, Regular Rhythm - Allergies Allergies/Adverse Reactions: Allergies Allergy/AdvReac Type Severity Reaction Status Date / Time Penicillins Allergy Cannot Verified 10/26/19 08:40 Remember - Blood Blood Available: No - Anesthesia Plan Pre-Op Medication Ordered: None - Acknowledgements Anesthesia Type Planned: General Anesthesia Pt an Appropriate Candidate for the Planned Anesthesia: Yes Alternatives and Risks of Anesthesia Discussed w Pt/Guardian: Yes Pt/Guardian Understands and Agrees with Anesthesia Plan: Yes PreAnesthesia Questionnaire - Past Health History Medical/Surgical History: Denies Medical/Surgical History HEENT History: Reports: Other (See Below) Other HEENT History: wears glasses, has permanent lower dental retainer Cardiovascular History: Reports: None Respiratory History: Reports: None Gastrointestinal History: Reports: None Genitourinary History: Reports: Renal Calculus Musculoskeletal History: Reports: Gout Neurological History: Reports: None Psychiatric History: Reports: None Endocrine/Metabolic History: Reports: None Hematologic History: Reports: None Immunologic History: Reports: None Oncologic (Cancer) History: Reports: None Dermatologic History: Reports: None - Infectious Disease History Infectious Disease History: Reports: None - Past Surgical History Head Surgeries/Procedures: Reports: None HEENT Surgical History: Reports: None Cardiovascular Surgical History: Reports: None Respiratory Surgical History: Reports: None GI Surgical History: Reports: None Other Female Surgeries/Procedures: ESWL 10/13/19 Male Surgical History: Reports: Lithotripsy ([facility]) (about 2 weeks ago), Vasectomy Endocrine Surgical History: Reports: None Neurological Surgical History: Reports: None Musculoskeletal Surgical History: Reports: None Oncologic Surgical History: Reports: None Dermatological Surgical History: Reports: None - SUBSTANCE USE Smoking Status *Q: Never Smoker Recreational Drug Use History: No - HOME MEDS Home Medications: Home Meds . [No Known Home Meds] 10/08/19 [History] - CURRENT (IN HOUSE) MEDS Current Meds: Current Medications Lactated Ringer's (Ringers, Lactated) 1,000 mls @ 100 mls/hr IV ASDIRECTED LUZ MARIA Sodium Chloride (Saline Flush) 10 ml FLUSH ASDIRECTED PRN PRN Reason: Keep Vein Open Sodium Chloride (Saline Flush) 2.5 ml FLUSH ASDIRECTED PRN PRN Reason: Keep Vein Open Sodium Chloride (Normal Saline) 10 ml IV ASDIRECTED PRN PRN Reason: IV Use Discontinued Medications Ciprofloxacin/Dextrose 400 mg/ (Premix) 200 mls @ 200 mls/hr IV ONCALL ONE Stop: 11/01/19 01:04
[2019-11-01] MEDS ORDERED: Iopamidol 200-M 10 ML vial ITHECAL ONE (07:27)
[2019-11-01] MEDS ORDERED: Ciprofloxacin in D5W 400 MG in Premix Bag 1 BAG IV ONE ×2 (07:30)
[2019-11-01] MEDS ORDERED: Sodium Chloride 0.9% 20 ML ONE (08:02)
[2019-11-01] MEDS ORDERED: Succinylcholine/Sod PF 100 MG/5 ML SYRINGE IV ONE (08:05)
[2019-11-01] MEDS ORDERED: Morphine 10 MG/ML Syringe ONE (08:21)
[2019-11-01] MEDS ORDERED: Acetaminophen 1,000 MG in Premix Bag 1 BAG IV ONE (08:43)
[2019-11-01] MEDS ORDERED: Morphine 4 MG/ML Syringe IVPUSH ONE (08:44)
[2019-11-01] MEDS ORDERED: Glycopyrrolate 0.2 MG/ML SDV ONE (09:07)
--- NOTE | 2019-11-01 10:06 | PCM.POSTAN ---
POST ANESTHESIA ASSESSMENT - MENTAL STATUS Mental Status: Alert, Oriented - VITAL SIGNS Vital Signs: Last Vital Signs Temp 36.4 C 11/01/19 09:39 Pulse 67 11/01/19 09:59 Resp 13 11/01/19 09:59 BP 116/66 11/01/19 09:59 Pulse Ox 94 L 11/01/19 09:59 - RESPIRATORY Respiratory Status: Respiratory Rate WNL, Airway Patent, O2 Saturation Stable - CARDIOVASCULAR CV Status: Pulse Rate WNL, Blood Pressure Stable - GASTROINTESTINAL GI Status: No Symptoms - PAIN Pain Score: 0 - POST OP HYDRATION Hydration Status: Adequate & Stable - OBSERVATIONS Free Text/Narrative:: no anesthesia problems
[2019-11-01] MEDS ORDERED: Lidocaine 2% 5 ML SDV ONE ×2 (10:08→10:11)
--- NOTE | 2019-11-01 11:24 | PCM48HPAN ---
Post Anesthesia Note - EVALUATION WITHIN 48HRS OF ANESTHETIC Vital Signs in Normal Range: Yes Patient Participated in Evaluation: Yes Respiratory Function Stable: Yes Airway Patent: Yes Cardiovascular Function Stable: Yes Hydration Status Stable: Yes Pain Control Satisfactory: Yes Nausea and Vomiting Control Satisfactory: Yes Mental Status Recovered: Yes Vital Signs: Last Vital Signs Temp 36.4 C 11/01/19 10:05 Pulse 62 11/01/19 10:35 Resp 16 11/01/19 10:35 BP 124/66 11/01/19 10:35 Pulse Ox 98 11/01/19 10:35 - COMMENTS/OBSERVATIONS Free Text/Narrative:: No anesthesia problems
--- NOTE | 2019-11-01 12:35 | OR ---
SURGEON: Brenna Elkins M.D. DATE OF PROCEDURE: 11/01/2019 PREOPERATIVE DIAGNOSIS: Multiple stone fragments in the upper ureter and the kidney on the right side. POSTOPERATIVE DIAGNOSIS: Multiple stone fragments in the upper ureter and the kidney on the right side. OPERATION: Ureteroscopy, laser lithotripsy, and removal of all stone fragments. DESCRIPTION OF PROCEDURE: The patient was given general anesthesia. He was in the supine position. He was prepped and draped in sterile drapes. Cystourethroscopy was done. The existing double-J stent was pulled partially through which a guidewire was advanced all the way up into the renal pelvis. The stent was removed. The guidewire was attached to the side of the drapes. The rigid ureteroscope was then advanced through the urethra, into the bladder, and up into the ureter and went up to the mid ureter at which time a smaller stone fragment was encountered, grasped, and removed. It was evident at that time that I could not get the rigid ureteroscope any further up beyond the mid ureter. So that was taken out after another guidewire was placed in over which the flexible ureteroscope was advanced all the way up. By then, the stone that was in the upper ureter went down in the kidney. So, that was chased over up into the kidney. Laser was applied to the largest of the fragments. Several fragments from the previous ESWL were encountered and these were eventually all removed by removing the first piece, pulling the rigid longterm up, putting an additional guidewire, that would be the second one, over which the flexible was advanced and additional fragments were removed, that was repeated three times and all the fragments were taken out. The final fragment was taken out by passing the flexible ureteroscope on the remaining guidewire, which was then taken out, and the flexible was taken out with the last fragment in it. Trauma to the ureter was minimal. Trauma to the inside of the renal pelvis was minimal to nonexistent and no need to put a new double-J stent. The bladder was emptied. The specimens were submitted, and the patient was moved to recovery room in good condition. JEFFREY / SURAJ /[id number]
== END 2019-11-01 11:20 | disposition home or self-care (01) ==
LOC: MW.SDS 06:32
PROVIDERS: ATTEND Urology
DX: N20.2 Calculus of kidney with calculus of ureter (principal); Z88.0 Allergy status to penicillin; Z91.030 Bee allergy status
CPT/HCPCS: 52353; C1769; J0330; J0744; J1885; J2001; J2250; J2270; J2405; J2704; J3010; J3490; J7120; 88300; Q9966

== ENCOUNTER 2021-01-21 00:09 | Emergency (ER) | payer OTHER ==
[2021-01-21] MEDS ORDERED: Ketorolac 15 MG/ML SDV IVPUSH ONE (00:23)
[2021-01-21] MEDS ORDERED: Lactated Ringers 1,000 ML IV SCH (00:30)
--- NOTE | 2021-01-21 01:29 | CT ---
INDICATION: Left flank pain TECHNIQUE: Axial images were obtained from the diaphragm to the pubic symphysis. Reformats were obtained in the coronal and sagittal plane. IV Contrast: None Oral Contrast: None COMPARISON: Abdomen and pelvis CT 10/08/2019 FINDINGS: Lower chest: Unremarkable. Liver: Normal in contour with right lobe cyst measuring 9 millimeters. Gallbladder and bile ducts: Unremarkable. No stones or inflammation. No biliary dilatation. Spleen: Unremarkable. Normal in size without mass. Pancreas: Unremarkable. No mass or inflammation. Adrenal glands: Unremarkable. No nodules. Kidneys: Moderate left hydronephrosis with perinephric and periureteral fat stranding. Obstructing proximal left ureteral stone measuring 6 x 7 millimeters. Vasculature: Unremarkable. GI tract: No dilated loops of large or small intestine. Mild colonic diverticulosis. Pelvis: Unremarkable. Bones: Unremarkable for age. IMPRESSION: 1. Nephrolithiasis with moderate left hydronephrosis and obstructing proximal left ureteral stone measuring 6 x 7 millimeters. Please note that all CT scans at this facility use dose modulation, iterative reconstruction, and/or weight-based dosing when appropriate to reduce radiation dose to as low as reasonably achievable. Dictated by Sabas Valderrama MD @ 01/21/2021 1:28:22 AM (Electronically Signed)
[2021-01-21] MEDS ORDERED: Tamsulosin 0.4 MG Cap.ER PO ONE (01:37)
[2021-01-21 01:53] LABS: CARBON DIOXIDE,CO2 31.2 mmol/L (21.0-32.0); POTASSIUM,K 4.3 mmol/L (3.5-5.1)
--- NOTE | 2021-01-21 02:01 | EDM.PDOC ---
ED HPI GENERAL MEDICAL PROBLEM - General Chief Complaint: Genitourinary Problem Stated Complaint: POSSIBLE KIDNEY STONES, LT SIDE PAIN Time Seen by Provider: 01/21/21 01:34 - History of Present Illness INITIAL COMMENTS - FREE TEXT/NARRATIVE: CHIEF COMPLAINT(S): "I believe it is a kidney stone." HISTORY OF PRESENT ILLNESS: This is a 40-year-old man and with a past medical history of nephrolithiasis who comes to the emergency department with a chief complaint of "I believe it is a kidney stone." The patient states that he believes is a kidney stone. He states that starting today he started to experience intermittent 10 out of 10 sharp pain on the left flank and left lower quadrant. He denies any dysuria, hematuria, decreased urination. He denies any fevers or chills. He denies any radiation of this pain otherwise. The pain resolves on its own and then comes back. There are no exacerbating factors. He states that it feels exactly the same as when he had a kidney stone in the past. He currently rates his pain a 0 out of 10. REVIEW OF SYSTEMS: Constitutional: Denies fever, chills. Eyes: Denies eye pain Ears, Nose, Mouth, & Throat: Denies earache Cardiovascular: Denies chest pain Respiratory: Denies shortness of breath Gastrointestinal: Positive for left lower quadrant abdominal pain. Denies Nausea, vomiting, diarrhea, hematochezia. Genitourinary: Positive for left flank pain. Denies hematuria, dysuria Skin:Denies a rash MSK: Denies joint pain Neurological: Denies blurred vision Psychiatric: Denies depression PAST MEDICAL HISTORY: As per history of present illness and as reviewed below otherwise noncontributory. SURGICAL HISTORY: As per history of present illness and as reviewed below otherwise noncontributory. SOCIAL HISTORY: As per history of present illness and as reviewed below o therwise noncontributory. FAMILY HISTORY: As per history of present illness and as reviewed below otherwise noncontributory. EXAMINATION OF ORGAN SYSTEMS/BODY AREAS: Constitutional: Blood pressure is 156/90, heart rate 62, respiratory rate 17 with an oxygen saturation of 98% on room air. Temperature 36.7 General: Young man who is in no acute distress Psychiatric: Appropriate mood and affect. Eyes: No scleral icterus or conjunctival erythema ENMT: Moist mucous membranes. No pharyngeal erythema Cardiovascular: Regular, rate, and rhythm. No gallops, murmurs, or rubs. Bilateral upper extremity pulses symmetric and intact. No peripheral edema. No JVD. Respiratory: Lungs clear to auscultation bilaterally. No wheezes, rales, or rhonchi. Gastrointestinal: Soft, non-tender, non-distended. Normoactive bowel sounds Genitourinary: No suprapubic tenderness mild left CVA tenderness. Musculoskeletal: Normal range of motion. Skin: No lesions or abrasions. Neurological: Alert, GCS 15 MEDICAL DECISION MAKING AND COURSE IN THE ED WITH INTERPRETATION/REVIEW OF DIAGNOSTIC STUDIES: This is a 40-year-old man with a past medical history of nephrolithiasis who presents to the emergency department with acute intermittent left flank with radiation to left groin tenderness who is mildly hypertensive but overall appears well. At this time I am concerned about the possibility of repeat kidney stone. Obtain a CT abdomen pelvis without contrast for further evaluation. We will provide the patient with Toradol for pain relief and obtain CBC, BMP, and urinalysis. We will reevaluate after further work-up. I do not believe any other labs or imaging are indicated. DDx: Pyelonephritis, nephrolithiasis, diverticulitis, musculoskeletal strain Laboratory: CBC is unremarkable. BMP reveals elevated creatinine of 1.4 which appears around the patient's baseline. Glucose is 150. Urinalysis reveals a trace amount of ketones and a small amount of blood with no evidence of any infection. Interpretation: Hematuria. The radiological images were viewed by myself along with reading the report from the radiologist. CT abdomen and pelvis without contrast reveals a 6 to 7 mm obstructing stone in the left ureter with some hydroureter and hydronephrosis. After labs and imaging given that there is no signs of infection and no acute kidney injury I did discuss symptomatic treatment at home and to evaluate for passage of the kidney stone. I did provide the patient with a follow-up contact number for urology in [place]. I did discuss strict return precautions with the patient. He was amenable to discharge and had no further questions DISPOSITION: The patient was discharged home in stable condition. The patient will follow up with urology this week CONDITION: Fair PROCEDURES: None FINAL IMPRESSION(S)/DIAGNOSES: 1. Acute left obstructive nephrolithiasis Jamaal Bishop M.D. Left Lower Abdomen Pain Score (Numeric/FACES): 5 - Related Data Allergies Allergy/AdvReac Type Severity Reaction Status Date / Time Penicillins Allergy Cannot Verified 01/21/21 01:15 Remember Home Meds: Home Meds Ibuprofen 600 mg PO Q6HR #28 tablet 01/21/21 [Rx] Ondansetron [Zofran ODT] 4 mg PO Q6H PRN #8 tab.dis 01/21/21 [Rx] Tamsulosin [Tamsulosin 24 Hr] 0.4 mg PO DAILY #30 cap.er 01/21/21 [Rx] Past Medical History - Past Health History Medical/Surgical History: Denies Medical/Surgical History HEENT History: Reports: Other (See Below) Other HEENT History: wears glasses, has permanent lower dental retainer Cardiovascular History: Reports: None Respiratory History: Reports: None Gastrointestinal History: Reports: None Genitourinary History: Reports: Renal Calculus Musculoskeletal History: Reports: Gout Neurological History: Reports: None Psychiatric History: Reports: None Endocrine/Metabolic History: Reports: None Hematologic History: Reports: None Immunologic History: Reports: None Oncologic (Cancer) History: Reports: None Dermatologic History: Reports: None - Infectious Disease History Infectious Disease History: Reports: None - Past Surgical History Head Surgeries/Procedures: Reports: None HEENT Surgical History: Reports: None Cardiovascular Surgical History: Reports: None Respiratory Surgical History: Reports: None GI Surgical History: Reports: None Male Surgical History: Reports: Lithotripsy (ESWL), Vasectomy Endocrine Surgical History: Reports: None Neurological Surgical History: Reports: None Musculoskeletal Surgical History: Reports: None Oncologic Surgical History: Reports: None Dermatological Surgical History: Reports: None Social & Family History - Family History Family Medical History: No Pertinent Family History - Tobacco Use Tobacco Use Status *Q: Never Tobacco User - Caffeine Use Caffeine Use: Reports: None - Recreational Drug Use Recreational Drug Use: No ED ROS GENERAL - Review of Systems Review Of Systems: See Below ED EXAM, GENERAL - Physical Exam Exam: See Below Course - Vital Signs Last Recorded V/S: Last Vital Signs Temp 36.7 C 01/21/21 01:15 Pulse 67 01/21/21 02:38 Resp 18 01/21/21 02:38 BP 148/87 H 01/21/21 02:38 Pulse Ox 97 01/21/21 02:38 - Orders/Labs/Meds Labs: Laboratory Tests 01/21/21 01/21/21 01/21/21 Range/Units 01:30 01:30 01:30 WBC 10.66 (4.0-11.0) K/uL RBC 5.11 (4.50-5.90) M/uL Hgb 15.1 (13.0-17.0) g/dL Hct 44.9 (38.0-50.0) % MCV 87.9 (80.0-98.0) fL MCH 29.5 (27.0-32.0) pg MCHC 33.6 (31.0-37.0) g/dL RDW Std Deviation 42.9 (28.0-62.0) fl RDW Coeff of Eugenia 13 (11.0-15.0) % Plt Count 256 (150-400) K/uL MPV 10.90 (7.40-12.00) fL Neut % (Auto) 81.3 H (48.0-80.0) % Lymph % (Auto) 12.9 L (16.0-40.0) % [place] % (Auto) 5.2 (0.0-15.0) % Eos % (Auto) 0.4 (0.0-7.0) % Baso % (Auto) 0.2 (0.0-1.5) % Neut # (Auto) 8.7 H (1.4-5.7) K/uL Lymph # (Auto) 1.4 (0.6-2.4) K/uL [place] # (Auto) 0.6 (0.0-0.8) K/uL Eos # (Auto) 0.0 (0.0-0.7) K/uL Baso # (Auto) 0.0 (0.0-0.1) K/uL Nucleated RBC % 0.0 /100WBC Nucleated RBCs # 0 K/uL Sodium 141 (136-148) mmol/L Potassium 4.3 (3.5-5.1) mmol/L Chloride 103 (98-107) mmol/L Carbon Dioxide 31.2 (21.0-32.0) mmol/L BUN 15 (7.0-18.0) mg/dL Creatinine 1.4 H (0.8-1.3) mg/dL Est Cr Clr Drug Dosing 79.92 mL/min Estimated GFR (MDRD) 55.6 ml/min Glucose 150 H (74-106) mg/dL Calcium 9.8 (8.5-10.1) mg/dL Urine Color YELLOW Urine Appearance CLEAR Urine pH 5.5 (5.0-8.0) Ur Specific [place] >= 1.030 (1.001-1.035) Urine Protein NEGATIVE (NEGATIVE) mg/dL Urine Glucose (UA) NEGATIVE (NEGATIVE) mg/dL Urine Ketones TRACE H (NEGATIVE) mg/dL Urine Occult Blood SMALL H (NEGATIVE) Urine Nitrite NEGATIVE (NEGATIVE) Urine Bilirubin NEGATIVE (NEGATIVE) Urine Urobilinogen 0.2 (<2.0) EU/dL Ur Leukocyte Esterase NEGATIVE (NEGATIVE) Urine RBC 2-5 (0-2/HPF) Urine WBC 0-1 (0-5/HPF) Ur Epithelial Cells OCCASIONAL (NONE-FEW) Calcium Oxalate Crystal OCCASIONAL (NEGATIVE) Urine Bacteria OCCASIONAL (NEGATIVE) Urine Mucus LIGHT (NONE-MOD) Meds: Medications Discontinued Medications Generic Name Dose Route Start Last Admin Trade Name Freq PRN Reason Stop Dose Admin Lactated Ringer's 1,000 mls @ 999 mls/hr 01/21/21 00:30 01/21/21 01:33 Ringers, Lactated IV 999 mls/hr ASDIRECTED LUZ MARIA Administration Ketorolac Tromethamine 15 mg 01/21/21 00:23 01/21/21 01:33 Ketorolac 15 Mg/Ml Sdv IVPUSH 01/21/21 00:24 15 mg ONETIME ONE Administration Tamsulosin HCl 0.4 mg 01/21/21 01:37 01/21/21 01:56 Tamsulosin 0.4 Mg Cap.Er PO 01/21/21 01:38 0.4 mg ONETIME ONE Administration Departure - Departure Time of Disposition: 01:59 Disposition: Home, Self-Care 01 Condition: Fair Clinical Impression: Kidney stone - Discharge Information *PRESCRIPTION DRUG MONITORING PROGRAM REVIEWED*: No *COPY OF PRESCRIPTION DRUG MONITORING REPORT IN PATIENT BETO: No Prescriptions: Tamsulosin [Tamsulosin 24 Hr] 0.4 mg PO DAILY #30 cap.er Ibuprofen 600 mg PO Q6HR #28 tablet Ondansetron [Zofran ODT] 4 mg PO Q6H PRN #8 tab.dis PRN Reason: Nausea/Vomiting Instructions: Kidney Stones, [id number] Referrals: PCP,None [Primary Care Provider] - Forms: ED Department Discharge Additional Instructions: You were evaluated today on an emergent basis. At this time you do have a 7 mm stone in your left ureter which is causing some fluid back up however there is no evidence of any kidney dysfunction or infection. As discussed I would like you to take ibuprofen 600 mg every 6 hours for pain relief, Flomax daily, and Zofran as needed for nausea. I would like you to contact urology today to schedule up a follow-up appointment this week. If you have any worsening pain, fever I would like you to return to the emergency department. [facility] NATALIE Handley [phone] *When you call for an appointment say "I was seen in the ER in [place] and I have a kidney stone and need follow up this week." The patient is informed of any results of their evaluation and diagnostic workup and all questions are answered. They are given discharge instructions and return precautions. The patient is stable for discharge. The patient states they understand and agree with the plan and that they will return if their symptoms get worse or if they have any new concerns. The following information is given to patients seen in the emergency department who are being discharged to home. This information is to outline your options for follow-up care. We provide all patients seen in our emergency department with a follow-up referral. The need for follow-up, as well as the timing and circumstances, are variable depending upon the specifics of your emergency department visit. If you don't have a primary care physician on staff, we will provide you with a referral. We always advise you to contact your personal physician following an emergency department visit to inform them of the circumstance of the visit and for follow-up with them and/or the need for any referrals to a consulting specialist. The emergency department will also refer you to a specialist when appropriate. This referral assures that you have the opportunity for follow-up care with a specialist. All of these measure are taken in an effort to provide you with optimal care, which includes your follow-up. Under all circumstances we always encourage you to contact your private physician who remains a resource for coordinating your care. When calling for follow-up care, please make the office aware that this follow-up is from your recent emergency room visit. If for any reason you are refused follow-up, please contact the [facility] Emergency Department at and asked to speak to the emergency department charge nurse. Sepsis Event Note (ED) - Focused Exam Vital Signs: Vital Signs Temp Pulse Resp BP Pulse Ox 01/21/21 02:38 67 18 148/87 H 97 01/21/21 01:15 36.7 C 62 17 156/90 H 98
== END 2021-01-21 02:43 | disposition home or self-care (01) ==
LOC: MW.ED 00:09
DX: N13.2 Hydronephrosis with renal and ureteral calculous obstruction (principal); Z88.0 Allergy status to penicillin
CPT/HCPCS: 36415; 74176; 80048; 81001; 85025; 96374; 99284; A9270; J1885; J7120